=== PATIENT | male | born 1950 | race Caucasian/White ===

== ENCOUNTER 2019-05-12 07:36 | Day surgery (SDC) | payer OTHER ==
[~2019-05-12] VITALS: Ht 177.8 cm; Wt 96.7 kg
[2019-05-12] VITALS (22 sets, daily range): BP systolic 74–130; BP diastolic 40–74; PULSE 56–65; RESP 12–19; Ht 177.8 cm; Wt 96.7 kg
[~2019-05-12 07:36] MED LIST: ASPI81TA52 PO; ASPIRIN; ATOR10TA65 PO; CEFAZOLIN 2 GM/50 ML (PMX) 50 ML IVPB ONE; CENTRUM SILVER; FINASTERIDE; GABAPENTIN; LORA10TA3 PO; OMEGA 3; POLYMYXIN/BACITRACIN 1L IRRIG IRR ONE; SOD CHLORIDE 0.9% 1,000 ML IV ONE; TAMS-14 PO; TOLT4CAP13 PO; TOLTERODINE TARTRATE
[2019-05-12] MEDS ORDERED: BUPIVACAINE 0.25% (MPF) 30 ML INJ ONE (07:37)
[2019-05-12] MEDS ORDERED: MIDAZOLAM 1 MG/ML 2 ML INJ ONE (07:38)
[2019-05-12] MEDS ORDERED: ROCURONIUM 50 MG INJ ONE ×2 (07:38→10:01)
[2019-05-12] MEDS ORDERED: FENTAnyl 50 MCG/ML VIAL ONE (07:38)
[2019-05-12] MEDS ORDERED: SEVOFLURANE 15 MIN ONE (07:38)
[2019-05-12] MEDS ORDERED: CEFAZOLIN 1 GM INJ ONE (07:38)
[2019-05-12] MEDS ORDERED: PROPOFOL 20 ML ONE (07:38)
[2019-05-12] MEDS ORDERED: ROPIVACAINE 0.2% 20 ML VIAL ONE (07:38)
[2019-05-12] MEDS ORDERED: POLYMYXIN/BACITRACIN 1L IRRIG ONE (07:38)
[2019-05-12] MEDS ORDERED: ONDANSETRON 4 MG INJ IV PRN (08:00)
[2019-05-12] MEDS ORDERED: HYDROmorphONE 1 MG/5 ML IV SYRINGE IV PRN ×3 (08:00)
[2019-05-12] MEDS ORDERED: EPHEDrine 25 MG/5 ML SYG IV PRN (08:00)
[2019-05-12] MEDS ORDERED: OXYCODONE/ACETAMINOPHEN (5/325) TAB PO PRN (08:00)
[2019-05-12] MEDS ORDERED: FENTAnyl 50 MCG/ML VIAL IV PRN ×3 (08:00)
[2019-05-12] MEDS ORDERED: hydrALAzine 20 MG INJ IV PRN (08:00)
[2019-05-12] MEDS ORDERED: METOCLOPRAMIDE 10 MG INJ IV PRN (08:00)
[2019-05-12] MEDS ORDERED: MEPERIDINE 25 MG INJ IV PRN (08:00)
[2019-05-12] MEDS ORDERED: LABETALOL HCL 20MG INJ IV PRN (08:00)
[2019-05-12] MEDS ORDERED: DIPHENHYDRAMINE 50 MG INJ IV PRN (08:00)
[2019-05-12] MEDS ORDERED: PHENYLephrine (100 MCG/ML) 10ML SYG ONE (09:00)
[2019-05-12] MEDS ORDERED: DEXAMETHASONE 4 MG/ML 5 ML INJ ONE (09:42)
[2019-05-12] MEDS ORDERED: ONDANSETRON 4 MG INJ ONE (09:42)
[2019-05-12] MEDS ORDERED: METOCLOPRAMIDE 10 MG INJ ONE (09:43)
[2019-05-12] MEDS ORDERED: KETOROLAC 30 MG INJ ONE (09:43)
[2019-05-12] MEDS ORDERED: SUGAMMADEX SODIUM 200 MG/2 ML VIAL IV ONE (09:43)
[2019-05-12] MEDS ORDERED: HYDROCODONE/APAP (5/325) TAB PO ONE (10:00)
== END 2019-05-12 12:04 | disposition home or self-care (01) ==
LOC: SDS 07:36
PROVIDERS: ATTEND Surgery
DX: K40.91 Unilateral inguinal hernia, without obstruction or gangrene, recurrent (principal); K40.00 Bilateral inguinal hernia, with obstruction, without gangrene, not specified as recurrent; E78.5 Hyperlipidemia, unspecified; Z79.82 Long term (current) use of aspirin
CPT/HCPCS: 49650; 49651; J0690; J1100; J1885; J2250; J2370; J2405; J2765; J2795; J3010